=== PATIENT | female | born 1995 | race Hispanic/Latino ===

== ENCOUNTER 2020-11-10 03:00 | Emergency (ER) | payer OTHER, SELFPAY | END 2020-11-10 04:34 | disposition home or self-care (01) | LOC: EDH 03:00 | DX: U07.1 COVID-19 (principal); S61.300A Unspecified open wound of right index finger with damage to nail, initial encounter; Z72.0 Tobacco use; X58.XXXA Exposure to other specified factors, initial encounter; Y93.89 Activity, other specified; Y92.89 Other specified places as the place of occurrence of the external cause; Y99.8 Other external cause status | CPT/HCPCS: 87426 ==